=== PATIENT | female | born 1980 ===

== ENCOUNTER 2016-11-09 21:57 | Emergency (ER) | payer OTHER ==
[2016-11-09 22:03] VITALS: BP 111/72
--- NOTE | 2016-11-09 23:02 | ED GI/GU/ABDOMINAL COMPLAINT ---
History of Present Illness General Chief Complaint: Female Urogenital Problems Stated Complaint: 11 WEEKS PREG, VAG BLEEDING Source: patient, family, old records Exam Limitations: no limitations Vital Signs & Intake/Output Vital Signs & Intake/Output Vital Signs Date Time Temp Pulse Resp B/P B/P Pulse O2 O2 Flow FiO2 Mean Ox Delivery Rate 11/09 2203 85 22 111/72 98 ED Intake and Output / 0000 11/09 1200 Intake Total Output Total 200 Balance -200 Output, Urine 200 Patient 139 lb Weight Allergies Coded Allergies: Penicillins (HIVES 11/09/16) Reconcile Medications Pnv No.122/Iron/Folic Acid ( Multi Tablet) (Unknown Strength) TABLET ( Unknown Dose) PO DAILY (Reported) Triage Note: PER PT 11 WEEKS STARTED SPOTTING ABOUT 5PM WENT TO CHILD NOT SEEN AND BROUGHT INTO ED. Triage Nurses Notes Reviewed? yes LMP (ages 10-50): 11 weeks ago ? y Is pt currently ? No Onset: 3 days Duration: day(s):, waxing and waning Timing: recent history Quality/Severity: cramping, mild Location: suprapubic Radiation: no radiation Activities at Onset: urinating Prior Abdominal Problems: none Sexually Active: Yes Last Time You Were Sexual: less than 2 months ago Sexual Orientation: Heterosexual Use of Protection: No No Modifying Factors: none HPI: The patient is 0012 11 weeks age of gestation. 3 days prior to admission patient complains of vaginal spotting worse at the end of urination. She also complains of very mild lower abdominal cramping intermittently none at present. She denies fever chills nausea vomiting diarrhea chest pain cough shortness of breath headache dysuria rash bleeding. Past History Travel History Traveled to [place] past 21 day No Medical History Any Pertinent Medical History? see below for history Neurological: NONE EENT: NONE Cardiovascular: NONE Respiratory: NONE Gastrointestinal: NONE Hepatic: NONE Renal: NONE Psychiatric: NONE Endocrine: NONE Surgical History Surgical History: non-contributory Psychosocial History Tobacco Use: Never used Family History Hx Contributory? No Review of Systems Review of Systems Constitutional: Reports: no symptoms. EENTM: Reports: no symptoms. Respiratory: Reports: no symptoms. Cardiovascular: Reports: no symptoms. GI: Reports: no symptoms. Genitourinary: Reports: see HPI. Musculoskeletal: Reports: no symptoms. Skin: Reports: no symptoms. Neurological/Psychological: Reports: no symptoms. Hematologic/Endocrine: Reports: no symptoms. Immunologic/Allergic: Reports: no symptoms. All Other Systems: Reviewed and Negative Physical Exam Physical Exam General Appearance: well developed/nourished, alert, awake, anxious, thin Head: atraumatic, normal appearance Eyes: Bilateral: normal appearance, PERRL, EOMI, normal inspection. Ears, Nose, Throat, Mouth: hearing grossly normal, moist mucous membrane Neck: normal inspection, supple, full range of motion, normal alignment Respiratory: normal breath sounds, chest non-tender, no respiratory distress, quiet respiration, lungs clear Cardiovascular: regular rate/rhythm, normal peripheral pulses, norml femoral pulses equa Peripheral Pulses: 4+ carotid (R), 4+ carotid (L) Gastrointestinal: normal bowel sounds, soft, non-tender, no organomegaly Pelvic: normal external exam, normal bimanual exam, blood, cervix closed Back: normal inspection, normal range of motion Extremities: normal range of motion, no ligament instability Neurologic/Psych: no motor/sensory deficits, awake, alert, oriented x 3, normal gait, normal mood/affect Skin: intact, normal color, warm/dry Core Measures ACS in differential dx? No Severe Sepsis Present: No Septic Shock Present: No Progress Differential Diagnosis: ectopic , threatened AB, UTI/pyelo Plan of Care: Orders Procedure Date/time Status HUMAN BETA HCG TITRE 11/09 2252 Complete COMPREHENSIVE METABOLIC PANEL 11/09 2252 Complete CBC WITHOUT DIFFERENTIAL 11/09 2252 Complete TYPE & SCREEN (NOT X-MATCH) 11/09 2252 Complete URINALYSIS 11/09 2249 Complete Laboratory Tests 11/09/16 2300: Anion Gap 9, Estimated GFR > 60, BUN/Creatinine Ratio 10.0, Glucose 85, Calcium 9.5, Total Bilirubin 0.4, AST 21, ALT 38, Alkaline Phosphatase 61, Total Protein 7.4, Albumin 4.4, Globulin 3.0, Albumin/Globulin Ratio 1.5, Beta HCG, Quant 7388.1, CBC w Diff NO MAN DIFF REQ, RBC 4.12 L, MCV 94.9, MCH 31.9 H, RDW 12.1 , MPV 7.1 L, Gran % 61.6, Lymphocytes % 26.2, Monocytes % 9.9 H, Eosinophils % 1.7, Basophils % 0.6, Absolute Granulocytes 5.4, Absolute Lymphocytes 2.3, Absolute Monocytes 0.9 H, Absolute Eosinophils 0.1, Absolute Basophils 0, PUBS MCHC 33.6 11/09/16 2250: Urine Color YEL, Urine Clarity CLEAR, Urine pH 7.0, Ur Specific [place] 1.010, Urine Protein NEG, Urine Ketones NEG, Urine Nitrite NEG, Urine Bilirubin NEG, Urine Urobilinogen 0.2, Ur Leukocyte Esterase NEG, Ur Microscopic SEDIMENT EXAMINED, Urine RBC 3-5, Ur Epithelial Cells RARE, Urine Bacteria FEW H, Urine Hemoglobin MOD H, Urine Glucose NEG Initial ED EKG: none Departure Departure Time of Disposition: 0004 Disposition: HOME OR SELF CARE Condition: Stable Clinical Impression Primary Impression: Threatened in first trimester Referrals: ANTONIO GRISSOM MD Call for appointment and follow up in the next 2 days Departure Forms: Customer Survey General Discharge Information
[2016-11-09] MEDS ORDERED: PRENATAL MULTI1 EAC2 PO (23:06)
[2016-11-09 23:10] LABS: ABSOLUTE BASOPHIL COUNT 0 /CUMM (0.0-0.2); ABSOLUTE EOSINOPHIL COUNT 0.1 /CUMM (0.0-0.7); ABSOLUTE GRANULOCYTE CT 5.4 /CUMM (1.4-6.5); ABSOLUTE LYMPH COUNT 2.3 /CUMM (1.2-3.4); ABSOLUTE MONOCYTE COUNT 0.9 /CUMM (0.10-0.60); BASOPHIL % 0.6 % (0.0-2.0); EOSINOPHIL % 1.7 % (0-5); GRANULOCYTE % 61.6 % (42.2-75.2); HEMATOCRIT 39.1 % (37-47); MEAN CORPUSCULAR HGB 31.9 PG (27.0-31.0); MEAN CORPUSCULAR HGB CONC 33.6 G/DL (33.0-37.0); MEAN CORPUSCULAR VOLUME 94.9 FL (81.0-99.0); MEAN PLATELET VOLUME 7.1 FL (7.4-10.4); PLATELET COUNT 335 /CUMM (130-400); RBC DISTRIBUTION WIDTH 12.1 % (11.5-14.5); RED BLOOD CELL CT 4.12 /CUMM (4.20-5.40); WHITE BLOOD CELL COUNT 8.7 /CUMM (4.8-10.8)
== END 2016-11-10 00:10 ==
LOC: ERH 21:57
PROVIDERS: Emergency Medicine
DX: O20.0 Threatened abortion (principal)
CPT/HCPCS: 81001